=== PATIENT | female | born 1930 | race Caucasian/White ===

== ENCOUNTER 2018-11-20 18:30 | Emergency (ER) | payer OTHER ==
[~2018-11-20] VITALS: Ht 167.6 cm; Wt 60.3 kg
--- NOTE | 2018-11-20 18:39 | NUR ---
[id number] C/O GEN WEAKNESS, ON ATB FOR UTI, SHINGLES x 1 MONTH, TO ER BED 3, CHANGED TO GOWN, HOOKED TO MONITOR, AWAITING MD LINDER
[2018-11-20] MEDS ORDERED: ACETAMINOPHEN ES 500 MG TABLET ONE (18:48)
[2018-11-20 18:50] LABS: BASOPHILS % (AUTO) 0.5 % (0.0-2.0); EOSINOPHILS % (AUTO) 0.6 % (0.0-6.0); HEMATOCRIT 39 % (33-45); HEMOGLOBIN 13.5 g/dL (11.5-14.8); LYMPHOCYTES # (AUTO) 1.4 /CMM (0.8-4.8); LYMPHOCYTES % (AUTO) 19.8 % (20.0-44.0); MEAN CORPUSCULAR HGB CONC 34 g/dl (31.0-36.0); MEAN CORPUSCULAR VOLUME 96 fL (82-100); MONOCYTES # (AUTO) 0.7 /CMM (0.1-1.30); MONOCYTES % (AUTO) 9.9 % (2.0-12.0); NEUTROPHILS # (AUTO) 4.9 /CMM (1.8-8.9); NEUTROPHILS % (AUTO) 69.2 % (43.0-81.0); PLATELET COUNT (AUTO) 264 /CMM (150-450); RED BLOOD CELL COUNT(AUTO) 4.09 MIL/uL (4.0-5.2)
--- NOTE | 2018-11-20 18:55 | NUR ---
DR TOSCANO AT BEDSIDE
[2018-11-20 18:58] LABS: CALCIUM, SERUM 9.2 mg/dL (8.5-10.1); CARBON DIOXIDE 25 mmol/L (21-32); CHLORIDE 98 mmol/L (98-107); CREATININE 0.8 mg/dL (0.6-1.3); GLUCOSE 102 mg/dL (74-106); POTASSIUM 3.8 mmol/L (3.5-5.1); SODIUM SERUM 133 mmol/L (136-145); UREA NITROGEN, BLOOD 15 mg/dL (7-18)
[2018-11-20] MEDS ORDERED: IV NS 0.9% 1,000 ML BAG IV ONE (19:00)
[2018-11-20] MEDS ORDERED: ACETAMINOPHEN ES 500 MG TABLET PO ONE (19:00)
--- NOTE | 2018-11-20 19:03 | NUR ---
URINE SAMPLE SENT TO LAB
[2018-11-20 19:18] LABS: ALANINE AMINOTRANSFERASE 21 U/L (12-78); ALBUMIN 3.5 g/dL (3.4-5.0); ALKALINE PHOSPHATASE 77 U/L (46-116); ASPARTATE AMINOTRANSFERASE 20 U/L (15-37); BILIRUBIN,DIRECT 0.1 mg/dL (0.0-0.2); BILIRUBIN,TOTAL 0.4 mg/dL (0.2-1.0); TOTAL PROTEIN, SERUM 7.4 g/dL (6.4-8.2)
--- NOTE | 2018-11-20 19:20 | NUR ---
REPORT GIVEN TO SILVESTRE BROWNING FOR HETAL
[2018-11-20 19:21] LABS: APPEARANCE,URINE Clear (CLEAR); BILIRUBIN,URINE Negative (NEGATIVE); BLOOD, URINE Trace-intact Ery/uL (NEGATIVE); COLOR,URINE Light yellow (YELLOW); KETONES,URINE Negative (NEGATIVE); LEUKOCYTE ESTERASE ,URINE Negative (NEGATIVE); NITRITE, URINE Negative (NEGATIVE); PH,URINE 7.5 (5.0-8.0); PROTEIN,URINE Negative (NEGATIVE); UGLUCOSE Negative (NEGATIVE); UROBILINOGEN,URINE 0.2 EU/dL (0.2)
[2018-11-20 19:39] LABS: BACTERIA,URINE Few /HPF (None Seen); SQUAMOUS EPITHELIAL CELL,UR Few /HPF (None Seen); WBC,URINE 0-2 /HPF (0-3)
[2018-11-20 20:59] VITALS: BP 146/91
== END 2018-11-20 21:01 | disposition home or self-care (01) ==
LOC: ER 18:32
DX: R53.1 Weakness (principal); E78.00 Pure hypercholesterolemia, unspecified; E03.9 Hypothyroidism, unspecified; M81.0 Age-related osteoporosis without current pathological fracture; G62.9 Polyneuropathy, unspecified; M19.90 Unspecified osteoarthritis, unspecified site; Z87.440 Personal history of urinary (tract) infections
CPT/HCPCS: 36415; 71045-TC; 80048-TC; 80076-TC; 81000-TC; 83605-TC; 84484-TC; 85025-TC; 85730-TC; 87040-TC; 87086-TC; J7030